=== PATIENT | female | born 1990 ===

== ENCOUNTER 2022-12-23 14:15 | Inpatient (IN) | payer OTHER ==
[~2022-12-23] VITALS: Ht 160 cm; Wt 70.8 kg
[2023-01-04] MEDS ORDERED: PRENATAL TABLE1 EAC4 PO (06:14)
[2023-01-04 07:05] LABS: HEMATOCRIT 40.7 % (36.0-45.00); HEMOGLOBIN 13.9 g/dL (12.0-15.00); MEAN CELL VOLUME 87.4 fL (80.00-100.00); MEAN CORPUSCULAR HEMOGLOBIN 29.8 pg (27.00-32.0); MEAN CORPUSCULAR HGB CONC 34.1 g/dl (32.0-36.0); PLATELET COUNT 201 K/uL (150-450); RED BLOOD COUNT 4.66 M/uL (4.00-6.00); RED CELL DISTRIBUTION WIDTH 13.4 % (11.5-14.5)
[2023-01-04 07:45] LABS: INR < 0.93; PARTIAL THROMBOPLASTIN TIME 27.1 SECONDS (22.0-34.0); PROTHROMBIN TIME 9.8 SECONDS (9.0-11.5)
[2023-01-04 08:00] LABS: ALBUMIN 2.7 gm/dL (3.4-5.0); BILIRUBIN TOTAL 0.3 mg/dL (0.3-1.2); CREATININE SERUM 0.56 mg/dL (0.55-1.02); GFR 126.26; GLOBULINA 3.6 G/DL (2.4-3.5); POTASSIUM 3.7 mEq/L (3.5-5.1); TOTAL PROTEIN 6.3 gm/dL (6.4-8.2)
[2023-01-04 22:06] LABS: HEMATOCRIT 35.7 % (36.0-45.00); HEMOGLOBIN 11.9 g/dL (12.0-15.00); MEAN CELL VOLUME 87.3 fL (80.00-100.00); MEAN CORPUSCULAR HGB CONC 33.2 g/dl (32.0-36.0); PLATELET COUNT 217 K/uL (150-450); RED BLOOD COUNT 4.09 M/uL (4.00-6.00); RED CELL DISTRIBUTION WIDTH 12.9 % (11.5-14.5)
== END 2023-01-06 13:06 | disposition home or self-care (01) | DRG 798 ==
LOC: OB/GYN 01-01 13:30 → LDR 01-04 05:40 → OB/GYN 01-05 07:13
PROVIDERS: Obstetrics & Gynecology; ADMIT Obstetrics & Gynecology; ATTEND Obstetrics & Gynecology
PROC: 10D17ZZ Extraction of Products of Conception, Retained, Via Natural or Artificial Opening (ICD-10-PCS; 2023-01-04)
PROC: 0W8NXZZ Division of Female Perineum, External Approach (ICD-10-PCS; 2023-01-04)
PROC: 4A1HXCZ Monitoring of Products of Conception, Cardiac Rate, External Approach (ICD-10-PCS; 2023-01-04)
PROC: 10E0XZZ Delivery of Products of Conception, External Approach (ICD-10-PCS; principal; 2023-01-04 18:00)
DX: O67.8 Other intrapartum hemorrhage (principal); Z37.0 Single live birth; Z3A.39 39 weeks gestation of pregnancy; Z20.822 Contact with and (suspected) exposure to COVID-19